=== PATIENT | female | born 1995 | race Caucasian/White ===

== ENCOUNTER 2023-10-22 21:47 | Emergency (ER) | payer OTHER, SELFPAY ==
[2023-10-22 21:52] VITALS: BP 133/87; BMI 25.8
[2023-10-22 22:20] LABS: % Basophils 0.4 % (0-2); % Eosinophils 1.6 % (0-6); % Immature Granulocytes 0.7 % (0-0.5); % Lymphocytes 33.5 % (20.5-51.1); % Monocytes 6.4 % (1.7-9.3); % Neutrophils 57.4 % (42.2-75.2); Absolute Eosinophils 0.2 10^3/uL (0-0.7); Absolute Immature Granulocytes 0.1 10^3/uL (0-0.05); Absolute Lymphocytes 3.7 10^3/uL (1.2-3.4); Absolute Monocytes 0.7 10^3/uL (0.1-0.6); Absolute Neutrophils 6.3 10^3/uL (1.4-6.5); Hematocrit 37.5 % (37.0-47.0); Hemoglobin 12.4 g/dL (12.0-16.0); Mean Corp Hgb Conc. 33.1 g/dL (33.0-37.0); Mean Corpuscular Hgb 27.9 pg (27.0-31.0); Mean Corpuscular Volume 84.5 fL (81.0-99.0); Mean Platelet Volume 10.7 fL (7.4-10.4); Nucleated Red Blood Cells % 0 %; Platelet Count 278 10^3/uL (130-400); Red Blood Cell Count 4.44 10^6/uL (4.20-5.40); Red Cell Dist. Width 13.1 % (11.5-14.5); White Blood Cell Count 10.9 10^3/uL (4.8-10.8)
[2023-10-22 22:29] LABS: HCG, Serum Qualitative Screen Negative
[2023-10-22 22:34] LABS: ALT (SGPT) 18 U/L (0-35); AST (SGOT) 21 U/L (14-36); Albumin 4.3 g/dl (3.5-5.0); Alkaline Phosphatase 73 U/L (38-126); Blood Urea Nitrogen 10 mg/dl (7-17); Calcium 9.2 mg/dl (8.4-10.2); Carbon Dioxide 25 mmol/L (22-30); Chloride 105 mmol/L (98-107); Estimated Creatinine Clearance 123 ml/min; Glucose 102 mg/dl (70-99); Potassium 3.8 mmol/L (3.5-5.1); Sodium 136 mmol/L (135-145); Total Bilirubin 0.2 mg/dl (0.2-1.3); Total Protein 7.6 g/dl (6.3-8.2); eGFR > 60.00
--- NOTE | 2023-10-23 02:30 | ED.GENMED ---
History of Present Illness
General
Chief Complaint: Cold/Flu/URI Symptoms
Source: patient
Time Seen by Provider: 10/23/23 02:19
Nursing documentation reviewed up to this point in time: agreed with
Travel History
Have you had any contact with someone who has COVID-19?: No
Do you have any symptoms of coronavirus? Fever > 100 degrees, chills, cough, shortness of breath, sore throat, loss of taste or smell, muscle aches, or headache?: No
History of Present Illness
History of Present Illness:
28-year-old female presents with cough, congestion, tightness, and sore throat. She was diagnosed with tonsillitis a week ago. Started on prednisone. She states that her symptoms started to improve. Few days ago she started to lose her voice.
She reports that her voice has been returning and her symptoms have been improving. She does feel facial pressure on the right. She does report crusty discharge from her right eye. She does have frequent bouts of tonsillitis. She states that
antibiotics usually resolve her symptoms. She did have a mono and strep test on Monday which were both negative. Denies current fever or chills.
Past History
Past History
ED Past Medical History: Hypothyroidism, Psychiatric (Anxiety), Other (Ovarian cyst, frequent right-sided abdominal pain. IBS, PCOS, elevated HR) and Other (Irritable bowel syndrome)
ED Past Surgical History: Appendectomy (October 2018), (August 2018), Gynecological (Ovarian cyst removal August 2018) and Other (Rhinoplasty)
Patient has exhibited threatening behavior?: No
PSI?: No
Social History
Tobacco: Former smoker (Quit 2017)
Alcohol: Occasional
Drug: None
Personal: Single
Living: with family
Employment: Not employed
Family History
Family History: Other (Uncontributory)
Review of Systems
Review of Systems
Allergies reviewed?: Yes
All Other Systems: ROS reviewed and negative except as documented in HPI and ROS
Constitutional: Reports fatigue; Denies fever, weight loss or chills
EENT: Reports sore throat, mouth pain and runny nose; Denies mouth swelling
Respiratory: Reports cough; Denies trouble breathing
Cardiac: Denies chest pain
ABD/GI: Reports no symptoms
: Reports no symptoms
Musculoskeletal: Reports no symptoms
Skin: Reports no symptoms
Neurological: Reports no symptoms
Endocrine: Reports no symptoms
Hematologic/Lymphatic: Reports no symptoms
Psychiatric: Reports no symptoms
Phy Exam
General Physical Exam
General Presentation: well appearing and mild distress
General age: appears stated age
General Skin: warm and dry
General Habitus: normal
General Mental: alert
General Hydration: appears well hydrated
ENT Exam
ENT Exam: EOMI, TM's normal, pharynx normal, neck supple, normocephalic and swallowing well
Eye Exam
Eye Exam: PERRL, cornea clear and conjunctiva normal
Cardiovascular Exam
Cardiovascular Exam: regular rate/rhythm
Pulmonary Exam
Pulmonary Exam: lungs clear, no respiratory distress, no rales, no crackles, no rhonchi, no stridor, no wheezing and no cough
Gastrointestinal Exam
Gastrointestinal Exam: normal bowel sounds, non tender, soft, no organomegaly, no pulsatile mass and non distended
Neurological Exam
Neurological Exam: alert, oriented x3, no motor deficits and speech normal
Musculoskeletal Exam
Musculoskeletal Exam: full ROM and no edema
Skin Exam
Skin Exam: normal color, warm/dry, no rash and no petechia
Psychiatric Exam
Psychiatric Exam: normal mood/affect
Course
Orders/Labs/Results
Orders:
Orders
10/22/23 21:58
Electrocardiogram (*1) Urgent
Reason for Study: Chest Pain
10/22/23 21:59
EKG- Treatment ONCE
Test Result ONCE
10/22/23 22:11
Complete Blood Count/With Diff Urgent
Comprehensive Metabolic Panel Urgent
HCG, Serum Qualitative Screen Urgent
10/23/23 00:00
CR Chest - 2 Views Urgent
Reason For Exam: chest pain/tightness
10/23/23 02:29
Amoxicillin/Clavulanate Potass [Augmentin 250 mg/5 ml] 875 mg PO NOW STA
Abnormal Lab Results
10/22/23
22:11
WBC 10.9 H 10^3/uL
(4.8-10.8)
MPV 10.7 H fL
(7.4-10.4)
Abs Immat Gran (auto) 0.1 H 10^3/uL
(0-0.05)
Absolute Lymphs (auto) 3.7 H 10^3/uL
(1.2-3.4)
Absolute Monos (auto) 0.7 H 10^3/uL
(0.1-0.6)
Immature Gran % 0.7 H %
(0-0.5)
Creatinine 0.5 L mg/dL
(0.6-1.0)
Glucose 102 H mg/dl
(70-99)
10/22/23 22:11
10/22/23 22:11
Vital Signs
Initial and Last Documented VS:
Initial Vital Signs
Temp Pulse Resp BP Pulse Ox
98.0 F 92 16 133/87 100
10/22/23 21:52 10/22/23 21:52 10/22/23 21:52 10/22/23 21:52 10/22/23 21:52
Last Documented Vital Signs
Temp Pulse Resp BP Pulse Ox
98.0 F 92 16 133/87 100
10/22/23 21:52 10/22/23 21:52 10/22/23 21:52 10/22/23 21:52 10/22/23 21:52
*Radiology
Radiology exam reviewed: all reviewed NAD by ED Provider
*Pulse Oximetry
Patient hypoxic: no
*Critical Care Note
Total Time (30-74mins, 75-104mins- exclusive of procedures): Not Applicable
ED Attending Note
-
Portions of this chart may have been created with voice recognition software.� Occasional wrong word or��sound alike� substitutions may have occurred due to the inherent limitations of voice recognition software.
Discharge Plan
Departure
Patient Disposition: Home (Routine Discharge)
Date of Disposition: 10/23/23
Time of Disposition: 02:30
Patient with high blood pressure during this ER visit?: Yes
Condition: Good
Discharge Problem:
Sinusitis, Acute sinusitis
Instructions: Sinusitis, Adult ED, BLOOD PRESSURE
Prescriptions:
New
amoxicillin-pot clavulanate [Augmentin] 250-62.5 mg/5 mL suspension for reconstitution
17.5 ml PO BID 10 Days Qty: 350 0RF
No Action
pantoprazole [Protonix] 20 mg Tablet,Delayed Release (Dr/Ec)
20 mg PO DAILY
sucralfate [Carafate] 1 gram tablet
1 g PO AC
Referrals:
Ruy Kirk MD [Family Provider] -
Activity Restrictions/Additional Instructions:
It was a pleasure meeting you and taking part in your care. We hope for your continued healing and wellness.
Please read discharge instructions in their entirety. However, they are for general education and may not describe your exact diagnosis at discharge. Information on your ER visit and medical conditions were discussed with you along with appropriate
follow up information...
If indicated, please take your medications as instructed and indicated on discharge paperwork.
Please schedule a follow up appointment as directed. Call to schedule an appointment
Please return to the emergency department with ANY change in, persisting, or worsening of symptoms. If any of your symptoms do not improve, or persist, or become more severe within 6-12 hours, please return to the emergency department for further
care.
Please return to the emergency department if you develop a headache, neck pain/stiffness, fever greater than 100.4F, chest pain, shortness of breath, persistent nausea, vomiting, slurred speech, difficulty walking, numbness/tingling, weakness, signs
of infection or any other symptoms that are worrisome to you.
If you have any questions or concerns please do not hesitate to call the Hospital at or E-mail me directly at [email or web address]
Interventions
Interventions:
*Risk Screen - Suicide Last Done: 10/22/23 21:52
*General Assessment Last Done: 10/22/23 21:52
*Neglect/Abuse Screening Last Done: 10/22/23 21:52
*ED COVID-19 Vaccine History Last Done: 10/22/23 21:52
Discharge Date and Time
Print Language: TELUGU
[2023-10-23] MEDS: AUGMENTIN 250 MG/5 ML 875 MG PO (03:23)
[2023-10-23 03:33] VITALS: BP 124/85
== END 2023-10-23 03:33 | disposition home or self-care (01) ==
LOC: EMR 21:47
PROVIDERS: Emergency Medicine; EMERGENCY PHYSICIAN Student in an Organized Health Care Education/Training Program; FAMILY PHYSICIAN Family Medicine
DX: J01.90 Acute sinusitis, unspecified (principal); E03.9 Hypothyroidism, unspecified; F41.9 Anxiety disorder, unspecified; K58.9 Irritable bowel syndrome, unspecified; Z87.891 Personal history of nicotine dependence; Z90.49 Acquired absence of other specified parts of digestive tract
CPT/HCPCS: 99283; 71046; 80053; 84703; 85025; 93005

== ENCOUNTER 2024-07-01 21:00 | Emergency (ER) | payer OTHER, SELFPAY ==
[2024-07-01 21:11] VITALS: BP 130/83
[2024-07-01 21:38] LABS: % Basophils 0.5 % (0-2); % Immature Granulocytes 0.2 % (0-0.5); % Lymphocytes 37.5 % (20.5-51.1); % Neutrophils 52.8 % (42.2-75.2); Absolute Eosinophils 0.2 10^3/uL (0-0.7); Absolute Lymphocytes 3.1 10^3/uL (1.2-3.4); Absolute Monocytes 0.6 10^3/uL (0.1-0.6); Absolute Neutrophils 4.4 10^3/uL (1.4-6.5); Hematocrit 39.4 % (37.0-47.0); Hemoglobin 13.2 g/dL (12.0-16.0); Mean Corp Hgb Conc. 33.5 g/dL (33.0-37.0); Mean Corpuscular Hgb 28.8 pg (27.0-31.0); Mean Corpuscular Volume 85.8 fL (81.0-99.0); Mean Platelet Volume 11.1 fL (7.4-10.4); Nucleated Red Blood Cells % 0 %; Platelet Count 275 10^3/uL (130-400); Red Blood Cell Count 4.59 10^6/uL (4.20-5.40); Red Cell Dist. Width 12.5 % (11.5-14.5); White Blood Cell Count 8.3 10^3/uL (4.8-10.8)
[2024-07-01 21:49] LABS: HCG, Serum Qualitative Screen Negative
[2024-07-01 21:54] LABS: ALT (SGPT) 16 U/L (0-35); AST (SGOT) 20 U/L (14-36); Albumin 4.7 g/dl (3.5-5.0); Alkaline Phosphatase 66 U/L (38-126); Blood Urea Nitrogen 15 mg/dl (7-17); Calcium 9.7 mg/dl (8.4-10.2); Carbon Dioxide 24 mmol/L (22-30); Chloride 102 mmol/L (98-107); Glucose 108 mg/dl (70-99); Potassium 4.4 mmol/L (3.5-5.1); Sodium 139 mmol/L (135-145); Total Bilirubin 0.3 mg/dl (0.2-1.3); Total Protein 7.9 g/dl (6.3-8.2); eGFR > 60.00
[2024-07-01 22:04] LABS: Troponin I < 0.012 ng/ml
--- NOTE | 2024-07-02 00:57 | ED.GENMED ---
History of Present Illness
General
Chief Complaint: Chest Pain
Source: patient
Exam Limitations: none
Time Seen by Provider: 07/02/24 00:40
Nursing documentation reviewed up to this point in time: agreed with
History of Present Illness
History of Present Illness:
This is a 28-year-old woman who has no significant past medical history who admits to chronic left maxillary facial pain after undergoing root canal procedure x 2, 4 years ago. She has been evaluated by multiple dentists most recently 3 months ago
with no specific recommendations other than potentially offering to extract the tooth. She states various x-rays have been unremarkable with most recently 3 months ago.
More recently over the past week she has noticed some intermittent left upper chest pain as well as worsening of her left maxillary facial pain. She has had intermittent left-sided headaches, pain behind her left eye and she is worried that the
chest pain is related to her left maxillary facial pain. She is concern for occult infection. She has no prior history of recurrent dental infections, no history of recurrent sinus infections. She denies nasal congestion, she has not had a fever
nor chills, no sore throat.
She has been taking Tylenol sporadically without improvement. She denies vision change but does note intermittent pressure sensation behind her left eye.
Although has been evaluated by various dental specialists she has not sought evaluation with PCP nor any other specialist.
She takes no medicines on a daily basis.
Past History
Past History
ED Past Medical History: Hypothyroidism, Psychiatric (Anxiety), Other (Ovarian cyst, frequent right-sided abdominal pain. IBS, PCOS, elevated HR) and Other (Irritable bowel syndrome)
ED Past Surgical History: Appendectomy (October 2018), (August 2018), Gynecological (Ovarian cyst removal August 2018) and Other (Rhinoplasty)
Patient has exhibited threatening behavior?: No
PSI?: No
Social History
Tobacco: Former smoker (Quit 2017)
Alcohol: Occasional
Drug: None
Personal: Single
Living: with family
Employment: Not employed
Family History
Family History: Other (Uncontributory)
Phy Exam
Physical Exam
Physical Exam:
GENERAL: Alert , in no apparent distress. 28-year-old female appears her stated age, bright and alert, pleasant, appears in no acute distress.
EYE: pupils equal and reactive. anicteric
NECK: Supple, nontender, no meningismus, no significant adenopathy.
ENT: posterior pharynx is clear, oral mucosa is moist. TM clear b/l, nares patent. Mild tenderness to palpation left medial maxillary region. There is no soft tissue swelling, no erythema. Mild tenderness left maxillary canine tooth. No overt
dental carry. No gingival erythema.
CARDIAC: Regular rate and rhythm. no murmur. No rub. Mild tenderness left upper chest wall.
LUNGS: Clear breath sounds bilaterally, no acute respiratory distress, no wheezes/rales/rhonchi
ABDOMEN: Soft, nondistended, without focal tenderness, no r/g, no cvat. normoactive BS.
NEUROLOGICAL: Alert and oriented x3, no focal neuro deficits. Gait is magdaleno and steady.
SKIN: Warm and dry, normal color, skin intact. No rash.
MUSCULOSKELETAL: No C/C/E. peripheral pulses are full and equal b/l. No palpable tenderness.
PSYCH: Normal and appropriate interaction.
Scores
Heart Score for Chest Pain Patients
STEMI patient?: No
History: Slightly or Non-Suspicious
ECG: Normal
Age: </= 45 years
Risk Factors: No Risk Factors
Troponin: </= Normal Limit
Heart Score for Chest Pain Patients: 0
Heart Score Risk: 2.5% MACE over next 6 weeks
Course
Orders/Labs/Results
Orders:
Orders
07/01/24 21:00
Electrocardiogram (*1) Urgent
Reason for Study: Chest Pain
EKG- Treatment ONCE
07/01/24 21:15
CXR2 [CR Chest - 2 Views ] Urgent
Comment:
Reason For Exam: chest pain
07/01/24 21:16
Test Result ONCE
07/01/24 21:27
CMP [Comprehensive Metabolic Panel] Urgent
Complete Blood Count/With Diff Urgent
HCG, Serum Qualitative Screen Urgent
Troponin I Urgent
07/02/24 00:56
CT Head W/o Iv Contrast Urgent
Comment:
Reason For Exam: intermittent left sided headache-forehead/L eye
07/02/24 01:06
Ibuprofen [Motrin] 600 mg PO NOW STA
Abnormal Lab Results
07/01/24
21:27
MPV 11.1 H fL
(7.4-10.4)
Glucose 108 H mg/dl
(70-99)
07/01/24 21:27
07/01/24 21:27
Vital Signs
Initial and Last Documented VS:
Initial Vital Signs
Temp Pulse Resp BP Pulse Ox
98.5 F 98 20 130/83 100
07/01/24 21:11 07/01/24 21:11 07/01/24 21:11 07/01/24 21:11 07/01/24 21:11
Last Documented Vital Signs
Temp Pulse Resp BP Pulse Ox
98.5 F 89 14 124/82 99
07/01/24 21:11 07/02/24 01:34 07/02/24 01:34 07/02/24 01:34 07/02/24 01:34
MDM/Problems Addressed
Differential Diagnosis Includes:
Patient presents with 1 week history of left upper chest pain as well as several year history of left maxillary facial pain after root canal procedure.
She does admit to intermittent flares of left maxillary facial pain over the past 4 years associated with left-sided headache, left maxillary sinus pressure, pressure behind her left eye.
Concern for occult dental infection however denies fever, denies sinus congestion, no coughing or sore throat.
No history of immunocompromise nor risk factors for such.
Endocarditis is unlikely.
Overall nontoxic in appearance. Afebrile.
EKG is unremarkable, within normal limits.
Labs are unremarkable including normal white blood cell count, normal chemistries. Troponin is negative.
Chest x-ray is unremarkable, clear lung weathers. Normal heart size. Normal mediastinum.
She has had intermittent left-sided headaches, concern for potential migraine phenomenon versus chronic dentalgia/dental nerve root pain, radiating to the left side of her face. Other consideration is intracranial mass.
Will check CT of the head.
She has been offered an IM dose of Toradol which she declines. She is accepting of ibuprofen.
*Radiology
Radiology exam reviewed: radiology read reviewed
*Pulse Oximetry
Patient hypoxic: no
*EKG
Interpreted by ED Provider?: Yes
Interpretation: normal
Comparison EKG: no comparison EKG present
Rate: normal
Rhythm: sinus
Steele: normal axis
Interval: normal interval
QRS Pattern: normal QRS
Ischemia: no ischemia
*Juvenile Officer Interpretation
Rate: normal
Interpretation: normal
Rhythm: sinus
*Critical Care Note
Total Time (30-74mins, 75-104mins- exclusive of procedures): Not Applicable
Update Note
Update Note:
02:20
Patient feeling improved after ibuprofen. Resting comfortably.
CT of the head is unremarkable. Visualized paranasal sinuses are clear.
I suspect musculoskeletal left upper chest wall pain as well as persistent maxillary dental neuralgia.
Will trial diclofenac for as needed pain.
Recommend follow-up with PCP and patient plans to seek another dental opinion as well.
ED Attending Note
-
Portions of this chart may have been created with voice recognition software.� Occasional wrong word or��sound alike� substitutions may have occurred due to the inherent limitations of voice recognition software.
Discharge Plan
Departure
Patient Disposition: Home (Routine Discharge)
Date of Disposition: 07/02/24
Time of Disposition: 02:23
Patient with high blood pressure during this ER visit?: No
Condition: Good
Discharge Problem:
Anterior chest wall pain, chronic dental neuralgia
Instructions: Toothache, Chest Pain PCP Follow Up
Prescriptions:
New
diclofenac sodium 75 mg tablet,delayed release (DR/EC)
75 mg PO BID PRN (Reason: pain) Qty: 30 0RF
No Action
pantoprazole [Protonix] 20 mg Tablet,Delayed Release (Dr/Ec)
20 mg PO DAILY
sucralfate [Carafate] 1 gram tablet
1 g PO AC
amoxicillin-pot clavulanate [Augmentin] 250-62.5 mg/5 mL suspension for reconstitution
17.5 ml PO BID 10 Days Qty: 350 0RF
Referrals:
Ruy Kirk MD [Family Provider] - Call in 1-3 days for appt
Interventions
Interventions:
*Risk Screen - Suicide Last Done: 07/01/24 21:14
*General Assessment Last Done: 07/02/24 01:34
*Neglect/Abuse Screening Last Done: 07/01/24 21:14
ED- Fall Risk Assessment Last Done: 07/02/24 01:34
*ED COVID-19 Vaccine History Last Done: 07/01/24 21:14
ED- Cardiac Assessment Last Done: 07/02/24 01:34
Discharge Date and Time
Print Language: OCCITAN
[2024-07-02 01:34] VITALS: BP 124/82; BMI 25.3
[2024-07-02 02:00] VITALS: BP 119/78
[2024-07-02 03:01] VITALS: BP 110/77
== END 2024-07-02 03:09 | disposition home or self-care (01) ==
LOC: EMR 21:00
PROVIDERS: Emergency Medicine; EMERGENCY PHYSICIAN Emergency Medicine; FAMILY PHYSICIAN Family Medicine
DX: R07.89 Other chest pain (principal); G50.0 Trigeminal neuralgia; E03.9 Hypothyroidism, unspecified; Z87.891 Personal history of nicotine dependence; Z90.49 Acquired absence of other specified parts of digestive tract
CPT/HCPCS: 99285; 70450; 71046; 80053; 84484; 84703; 85025; 93005

== ENCOUNTER 2024-12-06 10:00 | Emergency (ER) | payer OTHER, SELFPAY ==
[2024-12-06 10:02] VITALS: BP 136/99
[2024-12-06 10:11] VITALS: BMI 27.9
--- NOTE | 2024-12-06 10:16 | ED.GENMED ---
History of Present Illness
General
Chief Complaint: Allergic Reaction
Source: patient
Exam Limitations: none
Time Seen by Provider: 12/06/24 10:08
History of Present Illness
History of Present Illness:
29-year-old otherwise healthy female presents with sudden onset of allergic reaction. She was outside working on some brush and came down in storm and developed hives around her face numbness and swelling of the upper lip and rash about her body.
She has been belching frequently. No chest pain. She denies shortness of breath. She took Benadryl at home and feels better. There has been no vomiting. No other complaints of
Past History
Past History
ED Past Medical History: Hypothyroidism, Psychiatric (Anxiety), Other (Ovarian cyst, frequent right-sided abdominal pain. IBS, PCOS, elevated HR) and Other (Irritable bowel syndrome)
ED Past Surgical History: Appendectomy (October 2018), (August 2018), Gynecological (Ovarian cyst removal August 2018) and Other (Rhinoplasty)
Patient has exhibited threatening behavior?: No
PSI?: No
Social History
Tobacco: Former smoker (Quit 2017)
Alcohol: Occasional
Drug: None
Personal: Single
Living: with family
Employment: Not employed
Family History
Family History: Other (Uncontributory)
Phy Exam
Physical Exam
Physical Exam:
General: Well-appearing female no acute respiratory distress
HEENT normocephalic atraumatic no obvious tongue swelling posterior pharynx is patent no trismus or drooling no stridor
Heart: Tachycardic but regular
Lungs are clear without wheeze
Skin: Mild urticarial rash over the neck and thorax
Extremities no cyanosis
Course
Orders/Labs/Results
Orders:
Orders
12/06/24 10:15
Dexamethasone Sod Phosphate [Decadron] 10 mg IV NOW STA
Diphenhydramine [Benadryl] 25 mg IV NOW STA
Famotidine [Pepcid] 20 mg IV NOW STA
Vital Signs
Initial and Last Documented VS:
Initial Vital Signs
Temp Pulse Resp BP Pulse Ox
98.4 F 94 20 136/99 100
12/06/24 10:02 12/06/24 10:02 12/06/24 10:02 12/06/24 10:02 12/06/24 10:02
Last Documented Vital Signs
Temp Pulse Resp BP Pulse Ox
98.4 F 94 20 136/99 100
12/06/24 10:02 12/06/24 10:02 12/06/24 10:02 12/06/24 10:02 12/06/24 10:18
MDM/Problems Addressed
Differential Diagnosis Includes:
Allergic reaction without respiratory distress. Patient took Benadryl at home. Will add more Benadryl Decadron and Pepcid through the IV. Considered EpiPen however not indicated at this time given lack of respiratory distress we will continue to
evaluate
*Pulse Oximetry
SaO2: 100
Oxygen Mode of Delivery: Room air
Patient hypoxic: no
*Critical Care Note
Total Time (30-74mins, 75-104mins- exclusive of procedures): Not Applicable
Update Note
Update Note:
Patient reexamined multiple times and is feeling much better. No further respiratory distress or swelling. Will prescribe EpiPen in the event she has worsening reaction in the future I will recommend continued Benadryl use at home if needed.
Stable for discharge
ED Attending Note
-
Portions of this chart may have been created with voice recognition software.� Occasional wrong word or��sound alike� substitutions may have occurred due to the inherent limitations of voice recognition software.
Discharge Plan
Departure
Patient Disposition: Home (Routine Discharge)
Date of Disposition: 12/06/24
Time of Disposition: 12:40
Patient with high blood pressure during this ER visit?: No
Discharge Problem:
Allergic reaction
Instructions: Hives (DC)
Prescriptions:
New
epinephrine [EpiPen] 0.3 mg/0.3 mL auto-injector
0.3 mg IM .STAT PRN (Reason: anaphylaxis) Qty: 1 0RF
No Action
pantoprazole [Protonix] 20 mg Tablet,Delayed Release (Dr/Ec)
20 mg PO DAILY
sucralfate [Carafate] 1 gram tablet
1 g PO AC
amoxicillin-pot clavulanate [Augmentin] 250-62.5 mg/5 mL suspension for reconstitution
17.5 ml PO BID 10 Days Qty: 350 0RF
diclofenac sodium 75 mg tablet,delayed release (DR/EC)
75 mg PO BID PRN (Reason: pain) Qty: 30 0RF
Referrals:
Ruy Kirk MD [Family Provider, Family Practice]
Activity Restrictions/Additional Instructions:
Use Benadryl as needed for continued rash. Return if worse otherwise fill your EpiPen prescription and use it in the event of respiratory distress.
Interventions
Interventions:
*Risk Screen - Suicide Last Done: 12/06/24 10:02
*General Assessment Last Done: 12/06/24 10:15
*Neglect/Abuse Screening Last Done: 12/06/24 10:15
*ED- Fall Risk Assessment Last Done: 12/06/24 10:15
*ED COVID-19 Vaccine History Last Done: 12/06/24 10:15
ED- Pulmonary Assessment Last Done: 12/06/24 10:16
Discharge Date and Time
Print Language: INDONESIAN
[2024-12-06] MEDS: DECADRON 10 MG IV (10:20)
[2024-12-06] MEDS: PEPCID 20 MG IV (10:21)
[2024-12-06] MEDS: BENADRYL 25 MG IV (10:22)
[2024-12-06 11:00] VITALS: BP 128/79
[2024-12-06 12:00] VITALS: BP 113/80
== END 2024-12-06 12:53 | disposition home or self-care (01) ==
LOC: EMR 10:00
PROVIDERS: EMERGENCY PHYSICIAN Emergency Medicine; FAMILY PHYSICIAN Family Medicine
DX: T78.49XA Other allergy, initial encounter (principal); X58.XXXA Exposure to other specified factors, initial encounter; L50.9 Urticaria, unspecified; Z87.891 Personal history of nicotine dependence
CPT/HCPCS: 99284; 96374; 96375 ×2; 99285